=== PATIENT | female | born 1990 | race Caucasian/White ===

== ENCOUNTER 2021-08-12 13:41 | Emergency (ER) | payer OTHER, SELFPAY ==
[2021-08-12 13:54] VITALS: BP 104/67; PULSE 61; RESP 16; TEMP 36.3; O2SAT 99
--- NOTE | 2021-08-12 14:13 | ED.URI ---
HPI - URI/Sore Throat General Chief Complaint: Upper Respiratory Infection Stated Complaint: SORE THROAT/COUGH Time Seen by Provider: 08/12/21 14:15 Source: patient and RN notes reviewed Mode of arrival: ambulatory Limitations: no limitations History of Present Illness HPI Narrative: 31-year-old female presents with concern for sore throat, nasal congestion, cough, loss of sense of smell. Reports symptoms started 3 days ago. Reports she has been taking ibuprofen, denies other [id number] intervention. She has not been vaccinated for Covid. 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 She denies shortness of breath, fever, chills, body aches, sweats. Reports exposure to strep throat. MD elicited complaint: cough and sore throat Related Data Home Medications Medication Instructions Recorded Confirmed No Home Medications 08/12/21 08/12/21 Allergies Allergy/AdvReac Type Severity Reaction Status Date / Time Sulfa (Sulfonamide Allergy Mild Verified 08/26/20 14:46 Antibiotics) Review of Systems Review of Systems: CONSTITUTIONAL: Denies malaise, chills, sweats, or fever. EYES: Denies visual changes, redness, or discharge. ENT: Reports rhinorrhea, congestion, sore throat, loss of smell. Denies sinus pain, otalgia CARDIOVASCULAR: Denies chest pain, palpitations, or edema. RESPIRATORY: Reports cough. Denies dyspnea. GASTROINTESTINAL: Denies abdominal pain, nausea, vomiting, diarrhea SKIN: Denies rash or itching. MUSCULOSKELETAL: Denies myalgia. NEUROLOGIC: Denies headache. All systems reviewed & are unremarkable except as noted in HPI and below PMFSH Family History Family History (System 08/26/20 @ 14:46 by Moses Sosa) Father Hypertension Mother Family history of chronic obstructive pulmonary disease Social History Social History (System 08/26/20 @ 14:46 by Moses Sosa) Smoking status: Never smoker Second hand tobacco smoke exposure: No Alcohol intake: current Comments At time of signature, agree with nursing past medical, surgical, social and family history. There is no relevant family history pertinent to the presenting complaint Exam Narrative: GENERAL: Well-appearing, well-nourished, and in no acute distress. HEAD: Normocephalic EYES: PERRLA, conjunctivae clear ENT: Nares clear, turbinates edematous and erythematous, clear discharge. Mucous membranes moist. TM pearly fernandes with dull light reflex bilaterally; no tragal tenderness. Oropharynx not erythematous without lesions. Tonsils not enlarged and without exudate, no drooling, no hoarseness, no trismus, uvula midline. NECK: Supple. No lymphadenopathy CHEST: Clear to auscultation, breath sounds equal. No wheezing, rhonchi, rales, or stridor. No respiratory distress, speaks in full sentences. HEART: Regular rate and rhythm. No murmur heard. SKIN: Warm, dry, no rash. NEURO: Alert and oriented x3. PSYCH: Normal mood and affect Course Course Emergency Course: Patient is aware of diagnosis, understands and agrees to treatment plan. Anticipatory guidance given. Patient agrees to follow-up as directed and is aware of reasons to seek care at the emergency department. Portions of this record may have been created with voice recognition software Vital Signs Vital signs: Reviewed. MDM - URI/Sore Throat MDM Narrative Medical decision making narrative: Differential diagnosis considered: Akhtar virus, strep pharyngitis, allergic rhinitis, upper respiratory tract infection, sinusitis, rhinosinusitis, nasopharyngitis. viral pharyngitis, otitis media, otitis externa, pneumonia, bronchitis, viral cough syndrome, viral syndrome, and influenza. Exam findings show no acute concerns or changes; patient is non-toxic appearing and is in no distress. Patient is appropriate for outpatient treatment and follow-up. Lab Data Attestation: I reviewed the patient's lab results. Critical Care Time Critical Care Time Critical Care Time: No Discharge Plan Discharge Clinic
[2021-08-13 13:33] LABS: SARS-CoV-2 RNA PCR Negative
== END 2021-08-12 14:52 | disposition home or self-care (01) ==
PROVIDERS: Emergency Provider Nurse Practitioner; PCP Internal Medicine Gastroenterology
DX: J06.9 Acute upper respiratory infection, unspecified (principal); Z20.822 Contact with and (suspected) exposure to COVID-19
CPT/HCPCS: 87081; 87426; 87880; 99213; C9803; G0463; U0003; U0005

== ENCOUNTER 2021-08-27 15:47 | Emergency (ER) | payer OTHER, SELFPAY ==
--- NOTE | ~2021-08-27 | XR_ITS ---
EXAMINATION: XR chest 2V DATE: 08/27/2021 16:50 INDICATION: Cough TECHNIQUE: PA and lateral views of the chest are obtained. COMPARISON: 04/18/2018 FINDINGS: There are minimal airspace opacities of the right lung base. There is no pleural effusion o r pneumothorax. The cardiomediastinal silhouette is normal. The visualized bones are unremarkable. Berkowitz rgical clips in the right upper quadrant are likely from prior cholecystectomy. IMPRESSION: 1. Right basilar airspace opacity, consistent with atelectasis versus pneumonia. Reviewed, dictated and finalized at location F. [employer] [employer] IMPRESSION: 1. Right basilar airspace opacity, consistent with atelectasis versus pneumonia .
[2021-08-27 15:57] VITALS: BP 117/75; PULSE 97; RESP 18; TEMP 37; O2SAT 99
--- NOTE | 2021-08-27 16:32 | ED.GENADULT ---
HPI - General Adult General Chief complaint: Upper Respiratory Infection Stated complaint: Fever, Cough, sore throat Source: patient Mode of arrival: ambulatory Limitations: no limitations History of Present Illness HPI narrative: 31-year-old female presented for complaints of headache, body aches, fatigue, sinus pressure/congestion, cough, sob with exertion, fever/chills, nausea. Symptoms have been present for about 3 weeks, worsening over the past 3 days. She endorses sick contacts who tested positive for covid 2 days ago. Patient is not vaccinated for COVID. Hx asthma as child. Related Data Allergies Allergy/AdvReac Type Severity Reaction Status Date / Time Sulfa (Sulfonamide Allergy Mild Verified 08/26/20 14:46 Antibiotics) Review of Systems Review of Systems: CONSTITUTIONAL: Endorses malaise, chills, sweats, fever. EYES: Denies visual changes, redness, or discharge. ENT: Reports rhinorrhea, congestion, sinus pain, otalgia and sore throat. CARDIOVASCULAR: Denies chest pain, palpitations, or edema. RESPIRATORY: Reports cough, post nasal drainage. Denies dyspnea. GASTROINTESTINAL: Denies abdominal pain, nausea, vomiting, diarrhea SKIN: Denies rash or itching. MUSCULOSKELETAL: endorses myalgia. NEUROLOGIC: Denies headache. [facility] Family History Family History Father Hypertension Mother Family history of chronic obstructive pulmonary disease Social History Social History Smoking status: Never smoker Second hand tobacco smoke exposure: No Alcohol intake: current Exam Narrative: GENERAL: Ill-appearing, nontoxic no acute distress. HEAD: Normocephalic EYES: PERRLA, conjunctivae clear ENT: Mucous membranes moist. TM pearly fernandes with dull light reflex bilaterally; no tragal tenderness. Oropharynx erythematous without lesions. Tonsils enlarged and without exudate, no drooling, no hoarseness, no trismus, uvula midline. NECK: Supple. anterior cervical lymphadenopathy CHEST: Clear/diminished to auscultation, breath sounds equal. No wheezing, rhonchi, rales, or stridor. No respiratory distress, speaks in full sentences. HEART: Regular rate and rhythm. No murmur heard. SKIN: Warm, dry, no rash. NEURO: Alert and oriented x3. PSYCH: Normal mood and affect Course Course Emergency Course: Xray reviewed with pt. Patient is aware of diagnosis, understands and agrees to treatment plan. Anticipatory guidance given. Patient agrees to follow-up as directed and is aware of reasons to seek care at the emergency department. Portions of this record may have been created with voice recognition software Level of Care: Express Care Visit Vital Signs Vital signs: Vital Signs Temperature 98.6 F 08/27/21 15:57 Pulse Rate 97 08/27/21 15:57 Respiratory Rate 18 08/27/21 15:57 Blood Pressure 117/75 08/27/21 15:57 Pulse Oximetry 99 08/27/21 15:57 Temperature 98.6 F 08/27/21 15:57 Pulse Rate 97 08/27/21 15:57 Respiratory Rate 18 08/27/21 15:57 Blood Pressure 117/75 08/27/21 15:57 Pulse Oximetry 99 08/27/21 15:57 reviewed Medical Decision Making Vital Signs Vital Signs: Vital Signs Temperature 98.6 F 08/27/21 15:57 Pulse Rate 97 08/27/21 15:57 Respiratory Rate 18 08/27/21 15:57 Blood Pressure 117/75 08/27/21 15:57 Pulse Oximetry 99 08/27/21 15:57 Temperature 98.6 F 08/27/21 15:57 Pulse Rate 97 08/27/21 15:57 Respiratory Rate 18 08/27/21 15:57 Blood Pressure 117/75 08/27/21 15:57 Pulse Oximetry 99 08/27/21 15:57 Imaging Data Attestation: I personally reviewed and interpreted this imaging study as follows: My impression: Right basilar airspace opacity, consistent with atelectasis versus pneumonia. Radiologist's impression: EXAMINATION: XR chest 2V DATE: 08/27/2021 16:50 INDICATION: Cough TECHNIQUE: PA and lateral views of the
== END 2021-08-27 17:17 | disposition home or self-care (01) ==
PROVIDERS: Emergency Provider Nurse Practitioner Family; PCP Internal Medicine Gastroenterology
DX: J18.9 Pneumonia, unspecified organism (principal); Z20.822 Contact with and (suspected) exposure to COVID-19
CPT/HCPCS: 71046; 87426; 99213; C9803; G0463

== ENCOUNTER 2021-10-27 17:30 | Emergency (ER) | payer OTHER, SELFPAY ==
--- NOTE | ~2021-10-27 | XR_ITS ---
XR chest 2V DATE: 10/27/2021 17:55 INDICATION: Cough for 3 weeks TECHNIQUE: PA and lateral views COMPARISON: 08/27/2021 2 view chest FINDINGS: Normal heart size. No hilar or mediastinal enlargement. The lungs are clear of infiltrate o r consolidation. No pleural effusion or pulmonary vascular congestion or pneumothorax. Status post cholecystectomy. Included skeletal structures are unremarkable. IMPRESSION: Negative chest Status post cholecystectomy Reviewed, dictated and finalized at location A.
[2021-10-27 17:36] VITALS: BP 126/80; PULSE 79; RESP 16; TEMP 36.5; O2SAT 99
--- NOTE | 2021-10-27 17:41 | ED.URI ---
HPI - URI/Sore Throat General Chief Complaint: Upper Respiratory Infection Stated Complaint: Sore throat, cough, ear pain Time Seen by Provider: 10/27/21 17:39 Source: patient and RN notes reviewed Mode of arrival: ambulatory Limitations: no limitations History of Present Illness HPI Narrative: 31-year-old female presents with concern for 3-week history of productive cough, ear pain, chills, sore throat. Reports she is taken [id number] medications without relief. Reports she tried 4 days of leftover amoxicillin without relief. She reports her daughter had Covid several weeks ago. She herself did not test for Covid. MD elicited complaint: cough, sore throat, rhinorrhea and nasal congestion Related Data Allergies Allergy/AdvReac Type Severity Reaction Status Date / Time Sulfa (Sulfonamide Allergy Mild Unknown Verified 10/27/21 17:41 Antibiotics) Review of Systems Review of Systems: CONSTITUTIONAL: Reports malaise, chills. Denies sweats, or fever. EYES: Denies visual changes, redness, or discharge. ENT: Reports rhinorrhea, congestion, otalgia and sore throat. CARDIOVASCULAR: Denies chest pain, palpitations, or edema. RESPIRATORY: Reports cough. Denies dyspnea. GASTROINTESTINAL: Denies abdominal pain, nausea, vomiting, diarrhea SKIN: Denies rash or itching. MUSCULOSKELETAL: Reports myalgia. NEUROLOGIC: Reports headache. All systems reviewed & are unremarkable except as noted in HPI and below PMFSH Family History Family History Father Hypertension Mother Family history of chronic obstructive pulmonary disease Social History Social History Smoking status: Never smoker Second hand tobacco smoke exposure: No Alcohol intake: current Comments At time of signature, agree with nursing past medical, surgical, social and family history. There is no relevant family history pertinent to the presenting complaint Exam Narrative: GENERAL: Well-appearing, well-nourished, and in no acute distress. HEAD: Normocephalic EYES: PERRLA, conjunctivae clear ENT: Nares clear, turbinates edematous and erythematous. Mucous membranes moist. TM pearly fernandes with dull light reflex bilaterally; no tragal tenderness. Oropharynx not erythematous without lesions. Tonsils not enlarged and without exudate, no drooling, no hoarseness, no trismus, uvula midline. NECK: Supple. No lymphadenopathy CHEST: Clear to auscultation, breath sounds equal. No wheezing, rhonchi, rales, or stridor. No respiratory distress, speaks in full sentences. HEART: Regular rate and rhythm. No murmur heard. SKIN: Warm, dry, no rash. NEURO: Alert and oriented x3. PSYCH: Normal mood and affect Course Course Emergency Course: Patient is aware of diagnosis, understands and agrees to treatment plan. Anticipatory guidance given. Patient agrees to follow-up as directed and is aware of reasons to seek care at the emergency department. Portions of this record may have been created with voice recognition software Level of Care: Express Care Visit Vital Signs Vital signs: Vital Signs Temperature 97.7 F 10/27/21 17:36 Pulse Rate 79 10/27/21 17:36 Respiratory Rate 16 10/27/21 17:36 Blood Pressure 126/80 10/27/21 17:36 Pulse Oximetry 99 10/27/21 17:36 Temperature 97.7 F 10/27/21 17:36 Pulse Rate 79 10/27/21 17:36 Respiratory Rate 16 10/27/21 17:36 Blood Pressure 126/80 10/27/21 17:36 Pulse Oximetry 99 10/27/21 17:36 Reviewed. MDM - URI/Sore Throat MDM Narrative Medical decision making narrative: Differential diagnosis considered: Akhtar virus, strep pharyngitis, allergic rhinitis, upper respiratory tract infection, sinusitis, rhinosinusitis, nasopharyngitis. viral pharyngitis, otitis media, otitis externa, pneumonia, bronchitis, viral cough syndrome, viral syndrome, and influenza. Exam findings show no acute concerns or ch
== END 2021-10-27 18:07 | disposition home or self-care (01) ==
PROVIDERS: Emergency Provider Nurse Practitioner; PCP Internal Medicine Gastroenterology
DX: J32.9 Chronic sinusitis, unspecified (principal); J40 Bronchitis, not specified as acute or chronic
CPT/HCPCS: 71046; 99213; G0463

== ENCOUNTER 2022-05-11 17:38 | Emergency (ER) | payer OTHER, SELFPAY ==
--- NOTE | 2022-05-11 17:40 | ED.SKABFB ---
HPI - Skin/Abscess/Foreign Bdy General Chief complaint: Skin/Abscess/Foreign Body Stated complaint: body rash Time Seen by Provider: 05/11/22 17:42 Source: patient, RN notes reviewed and old records reviewed Mode of arrival: ambulatory Limitations: no limitations History of Present Illness HPI narrative: 32-year-old female presents to the [facility] with complaints of a rash for the last 4 to 5 days. Describes it as being very itchy. Has tried taking Benadryl with no relief. Denies any lip or tongue swelling. No shortness of breath, chest pain or abdominal pain. No nausea vomiting or diarrhea. Has areas of hives to her bilateral arms and left upper chest. A few areas of red raised vesicular linear rash. MD complaint: rash Onset (ago): day(s) (4-5) Associated symptoms: itching Related Data Allergies Allergy/AdvReac Type Severity Reaction Status Date / Time Sulfa (Sulfonamide Allergy Mild Unknown Verified 10/27/21 17:41 Antibiotics) hydrocodone AdvReac Nausea Verified 05/11/22 17:42 Review of Systems Review of Systems: All systems reviewed & are unremarkable except as noted in HPI and below Constitutional: Constitutional: Reports no additional constitutional complaints, Denies chills and Denies fever(s) Eyes: Eyes: Reports no additional eye complaints ENT: Reports system reviewed and no additional complaints, except as documented Cardiovascular: Cardiovascular: Reports no additional cardiovascular complaints Respiratory: Respiratory: Reports no additional respiratory complaints Gastrointestinal: Gastrointestinal: Reports no additional gastrointestinal complaints Musculoskeletal: Musculoskeletal: Reports no additional musculoskeletal complaints Integumentary/Breasts: Skin/Breast: Reports as per HPI and Reports rash Neurologic: Reports system reviewed and no additional complaints, except as documented Psychiatric: Psychiatric: Reports no additional psychiatric complaints Allergic/Immunologic: Allergic/Immunologic: Reports no additional allergic/immunologic complaints [facility] Past Medical History Medical History No significant medical problems Surgical History Surgical History (Updated 05/12/22 @ 11:21 by Елена Duckworth APRN) No pertinent past surgical history Family History Family History Father Hypertension Mother Family history of chronic obstructive pulmonary disease Social History Social History (Reviewed 05/12/22 @ 11:21 by LEX Ramírez Smoking status: Never smoker Second hand tobacco smoke exposure: No Alcohol intake: current Comments At the time of my signature, I reviewed and agree with the nursing past medical, surgical, social, and family history. There is no relevant family history pertinent to the patient complaint. Exam Const: General: healthy appearing, no acute distress and alert Nutritional Appearance: well nourished Orientation/consciousness: patient oriented x3 Limitations: no limitations HENMT: Head: normal to inspection Ears: external ears normal, TM's normal bilaterally and EAC's normal Mouth: Yes Normal oral and palatal mucosa present, Yes lip normal and Yes moist mucous membranes Throat: posterior oropharynx normal and uvula midline Eyes: General: appearance normal, both eyes and all related structures Pupils: Equal, round and reactive pupils present Neck: Neck: normal visual inspection, no lymphadenopathy and no meningeal signs Chest: Chest palpation & inspection: normal inspection of the chest Resp: Effort & Inspection: normal respiratory effort and no use of accessory muscles Auscultation: clear to auscultation bilaterally, no crackles, no rales, no rhonchi and no wheezes Cardio: Rate: regular rate Rhythm: regular rhythm GI: GI Palp: Yes Soft to palpation and No Tenderness to palpation present (GI) Back/Spine/Pelvis: Cerv
[2022-05-11 17:46] VITALS: BP 124/84; PULSE 75; RESP 20; TEMP 36.6; O2SAT 100
== END 2022-05-11 17:52 | disposition home or self-care (01) ==
PROVIDERS: Emergency Provider Nurse Practitioner; PCP Internal Medicine Gastroenterology
DX: L50.9 Urticaria, unspecified (principal)
CPT/HCPCS: 99213; G0463